=== PATIENT | male | born 1995 | race African-American/Black ===

== ENCOUNTER → 2021-06-19 | Outpatient (CLI) | payer OTHER | LOC: COL.RAD 09:41 | DX: M79.661 Pain in right lower leg (principal) ==

== ENCOUNTER 2021-07-17 15:45 | Outpatient (RCR) | payer OTHER | END 2021-07-31 | disposition still patient (30) | LOC: MKS.ESL.PT | DX: M79.661 Pain in right lower leg (principal) ==

== ENCOUNTER → 2021-08-11 | Outpatient (CLI) | payer OTHER | LOC: ZCOL.LAB 17:10 | DX: U07.1 COVID-19 (principal) ==

== ENCOUNTER 2021-11-02 09:30 | Outpatient (RCR) | payer OTHER | END 2021-11-02 10:21 | disposition home or self-care (01) | LOC: MKS.ESL.PT 09:30 | DX: M79.661 Pain in right lower leg (principal) ==